=== PATIENT | male | born 1975 | race Two or more races ===

== ENCOUNTER 2021-08-06 18:41 | Emergency (ER) | payer SELFPAY ==
[~2021-08-06] VITALS: Ht 175.3 cm; Wt 90.7 kg
[2021-08-06 19:01] VITALS: BP 210/124
[2021-08-06] MEDS ORDERED: LABETALOL HCL 200 MG TAB PO ONE (19:15)
== END 2021-08-07 00:24 | disposition home or self-care (01) ==
LOC: ER 18:41
DX: S93.401A Sprain of unspecified ligament of right ankle, initial encounter (principal); X50.1XXA Overexertion from prolonged static or awkward postures, initial encounter; Y93.89 Activity, other specified; Y92.89 Other specified places as the place of occurrence of the external cause; Y99.8 Other external cause status
CPT/HCPCS: 73610